=== PATIENT | male | born 1990 | race American Indian/Alaskan Native ===

== ENCOUNTER 2021-03-22 13:10 | Emergency (ER) | payer SELFPAY ==
--- NOTE | 2021-03-22 13:27 | Emergency Department Report ---
Chief Complaint: Urogenital-Male Stated Complaint: GROIN PAIN Time Seen by Provider: 03/22/21 13:22 - HPI History of Present Illness: 30-year-old male patient presents emergency department complaints of swelling in his left groin starting 1 week ago. No preceding fall, trauma, or injury. Patient states the swollen area only causes discomfort when "moving around" or "tossing and turning in bed." No known history of hernia. Denies fever, nausea, vomiting, diarrhea, constipation, black/bloody stools, testicular pain/swelling, urinary symptoms. Denies all other complaints at this time. - ROS Review of Systems: GENERAL: Negative for fever. CARDIOVASCULAR: Negative for chest pain. PULMONARY: Negative for shortness of breath. GASTROINTESTINAL: Negative for abdominal pain. MUSCULOSKELETAL: Positive for groin swelling. NEUROLOGICAL: Negative for headache. INTEGUMENTARY: Negative for rash. - Exam Vital Signs: Vital Signs 03/22/21 13:18 Temperature 98.9 F Pulse Rate 98 H Respiratory 18 Rate Blood Pressure 152/96 O2 Sat by Pulse 99 Oximetry Physical Exam: General: Awake, appropriately interactive, no acute distress. Neck: Supple. Full range of motion intact. Cardiovascular: Normal peripheral perfusion. Pulmonary: No respiratory distress. Patient is speaking normally without use of accessory muscles. Abdominopelvic: Soft, non-tender, non-distended. Bowel sounds present. 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 Small area of protrusion to the left groin, more pronounced with Valsalva. No testicular pain/swelling. No overlying warmth or erythema. Skin: No apparent rashes or lesions. Neurological: No facial asymmetry. Speech is clear. Follows commands. Patient is alert and oriented. Musculoskeletal: Moves all four extremities spontaneously with normal range of motion. Psych: Cooperative. Appropriate mood and affect. MSE screening note: Focused history and physical exam performed. Due to findings the following was ordered: ED Medical Decision Making - Medical Decision Making Patient presents to the emergency department with complaints of unilateral groin swelling. History and exam findings consistent with inguinal hernia. Patient is afebrile, hemodynamically stable, no associated GI symptoms. There is no clinical evidence to suggest incarceration/strangulation warranting further diagnostic work-up on an emergent basis. Patient will be discharged home with referral to general surgeon for further evaluation on an outpatient basis. Emphasized the importance of refraining from heavy lifting until otherwise instructed by general surgeon. Patient expressed understanding and is agreeable to plan of care. Strict return precautions provided. History, exam, diagnostic testing, and current condition do not suggest worrisome pathology to warrant further testing, continued ED treatment, admission, or surgical evaluation at this point. Given the low probability of a significant medical illness, it would be more likely to result in harm than benefit to perform further testing at this stage. Discussed findings, presumptive diagnosis, need for follow-up and specific signs/symptoms that should prompt immediate return to the emergency department. Instructions were explained in detail to the patient in addition to giving written discharge information. Patient expressed understanding and was given the opportunity to ask questions, all of which were satisfactorily answered prior to discharge home. ED Disposition for MSE Clinical Impression: Inguinal hernia Qualifiers: Obstruction and gangrene presence: without obstruction or gangrene Laterality: unilateral Recurrence: non-recurrent Qualified Code(s): K40.90 - Unilateral inguinal hernia, without obstruction or gangrene, not specified as recurrent Disposition: DC-01 TO HOME OR SELFCARE Is pt being admited?: No Does the pt Need Aspirin: No Condition: Stable Instructions: Hernia, Adult, [id number] Additional Instructions: Take Tylenol every 4 hours as needed for pain. Avoid heavy lifting, pushing, pulling, squatting, etc. which may worsen your symptoms. Follow-up with Dr. Person, general surgeon, this week. Call today to schedule an appointment. See referral information below. Return to the emergency department immediately for new or worsening symptoms. Specifically, return to the emergency department immediately for fever, abdominal pain, vomiting, diarrhea, constipation, black/bloody stools, testicular pain/swelling, or any other concerns. Referrals: CHEN PERSON MD [Staff Physician] - 3-5 Days Forms: Work/School Release Form(ED) Time of Disposition: 13:29
== END 2021-03-22 14:25 | disposition home or self-care (01) ==
LOC: ED 13:10
CPT/HCPCS: 99282